=== PATIENT | female | born 1950 | race Caucasian/White ===

== ENCOUNTER 2023-07-13 15:04 | Emergency (ER) | payer OTHER ==
[2023-07-13 15:44] VITALS: BP 170/79; PULSE 87; RESP 16; TEMP 99.3; BMI 22.3
[2023-07-13] MEDS ORDERED: ACETAMINOPHEN INJECTION 100 ML IVPB ONE (16:01)
[2023-07-13 16:07] LABS: HEMATOCRIT 38.8 % (32.4-45.2); HEMOGLOBIN 13.4 G/dL (10.7-15.3); MCH 32.1 pg (25.7-33.7); MCHC 34.6 g/dl (32.0-36.0); MEAN CELL VOLUME 92.6 fl (80-96); MEAN PLT VOLUME 8.5 fl (7.5-11.1); PLATELET COUNT 240.2 10^3/uL (134-434); RBC 4.19 10^6/uL (3.60-5.2); WHITE BLOOD COUNT 5.8 10^3/uL (4.0-10.8)
[2023-07-13] MEDS: ACETAMINOPHEN 1000 MG/100 ML BAG IVPB ONE (16:07)
[2023-07-13] MEDS: LORazepam 2 MG/ML SDV VIAL IVPUSH ONE (16:07)
[2023-07-13 16:18] LABS: INR 1.02 (0.83-1.09); PROTHROMBIN TIME (PATIENT) 11.8 SEC (9.7-13.0)
[2023-07-13 16:21] LABS: ACTIVATED PTT 29.6 SECONDS (25.2-36.5)
[2023-07-13 16:22] LABS: PLATELET ESTIMATE ADEQUATE
[2023-07-13 16:26] LABS: CREATININE 0.5 mg/dl (0.6-1.3)
[2023-07-13 16:27] LABS: ALBUMIN 4.5 g/dl (3.4-5.0); CALCIUM 9.3 mg/dl (8.5-10.1); MAGNESIUM 1.9 mg/dL (1.8-2.4); POTASSIUM 3.8 mmol/L (3.5-5.1); TOT PROT 6.9 g/dl (6.4-8.2)
[2023-07-13 16:28] LABS: BILIRUBIN,TOTAL 0.3 mg/dl (0.2-1)
[2023-07-13 18:02] LABS: N-TERMINAL BNP 104.2 pg/ml (5-125)
== END 2023-07-13 18:37 | disposition home or self-care (01) ==
LOC: FER 15:04
PROC: 3E033NZ Introduction of Analgesics, Hypnotics, Sedatives into Peripheral Vein, Percutaneous Approach (ICD-10-PCS; principal; 2023-07-13)
PROC: 3E033GC Introduction of Other Therapeutic Substance into Peripheral Vein, Percutaneous Approach (ICD-10-PCS; 2023-07-13)
DX: R07.2 Precordial pain (principal); R51.9 Headache, unspecified; I10 Essential (primary) hypertension; F41.9 Anxiety disorder, unspecified; U07.1 COVID-19
CPT/HCPCS: 0241U-QW; 36415; 71045-TC-FY; 80053; 83735; 83880; 84443; 84484; 85025; 85610; 85730; 86850; 86900; 86901; 93005; 99285-25; J0131